=== PATIENT | female | born 1955 | race Caucasian/White ===

== ENCOUNTER 2017-02-26 06:01 | Day surgery (SDC) | payer BC ==
--- NOTE | ~2017-02-26 | EGD ---
EGD REPORT [facility] [address] [address] NAME: ESTELA VARGHESE : 57 STATUS : REG [facility]#: [id number] AGE: 61 ADM/REG DATE : 02/26/17 MR#: [id number] REPORT SERV DATE: 02/26/17 DICTATED BY: DATE: REPORT STATUS : Draft TRANSCRIBED BY: [employer] DATE: 02/26/17 [facility] Patient Name: Estela Varghese Date of : 1955 Attending MD: HENRIQUE COFFMAN MD Procedure Date No Time: 02/26/2017 Procedure: Colonoscopy Indications: Personal history of malignant neoplasm of the colon Referring MD: Liliana Salazar Medicines: as per anesthesia Complications: No immediate complications. Procedure: Pre-Anesthesia Assessment: - ASA Grade Assessment: III - A patient with severe systemic disease. After I obtained informed consent, the scope was passed under direct vision. Throughout the procedure, the patient's blood pressure, pulse, and oxygen saturations were monitored continuously. The PCF [id number] was introduced through the anus and advanced to the ileocolonic anastomosis. The colonoscopy was performed without difficulty. The patient tolerated the procedure. The quality of the bowel preparation was adequate to identify polyps. Findings: The perianal and digital rectal examinations were normal. There was evidence of a prior end-to-side ileo-colonic anastomosis in the transverse colon. This was patent. This was characterized by healthy appearing mucosa. Internal hemorrhoids were found during endoscopy and were mild. Impression: - Patent end-to-side ileo-colonic anastomosis. - Internal hemorrhoids. Recommendation: - Repeat colonoscopy in 5 years for surveillance. Procedure Code(s): --- Professional --- 91456, Colonoscopy, flexible, proximal to splenic flexure; diagnostic, with or without collection of specimen(s) by brushing or washing, with or without colon decompression (separate procedure) Diagnosis Code(s): --- Professional --- Z98.0, Intestinal bypass and anastomosis status K64.8, Other hemorrhoids EGD REPORT [facility] [address] [address] NAME: ESTELA VARGHESE : [birth year] STATUS : REG [facility] PAT#: [id number] AGE: 61 ADM/REG DATE : 02/26/17 MR#: [id number] REPORT SERV DATE: 02/26/17 DICTATED BY: DATE: REPORT STATUS : Draft TRANSCRIBED BY: [employer] DATE: 02/26/17 Z85.038, Personal history of other malignant neoplasm of large intestine CPT copyright 2013 [employer]. All rights reserved. The codes documented in this report are preliminary and upon social services manager review may be revised to meet current compliance requirements. HENRIQUE COFFMAN MD 02/26/2017 8:14 AM This report has been signed electronically. Number of Addenda: 0 Note Initiated On: 02/26/2017 7:49 AM Scope Withdrawal Time 0 hours 6 minutes [address] [place], [place] [address] [id number]
[~2017-02-26 06:01] MED LIST: ASA5GR PO; CRESTOR10 PO; FISH-EPA1000 MG PO; GLUCOPHXR PO; GLUCXL10 PO; JARDI25B PO; LOP50 PO; PRIN10 PO; SYN125 PO; TRADJENTA5 MG PO; TRANDAT100 PO
== END 2017-02-26 23:59 | disposition home or self-care (01) ==
LOC: DMU 06:01
PROVIDERS: Internal Medicine Gastroenterology
PROC: 0DJD8ZZ Inspection of Lower Intestinal Tract, Via Natural or Artificial Opening Endoscopic (ICD-10-PCS; principal; 2017-02-26 07:30)
DX: K64.8 Other hemorrhoids (principal); Z98.0 Intestinal bypass and anastomosis status; I10 Essential (primary) hypertension; E03.9 Hypothyroidism, unspecified; E11.9 Type 2 diabetes mellitus without complications; I49.9 Cardiac arrhythmia, unspecified; Z90.710 Acquired absence of both cervix and uterus; Z85.038 Personal history of other malignant neoplasm of large intestine; Z90.49 Acquired absence of other specified parts of digestive tract; Z79.899 Other long term (current) drug therapy; E78.00 Pure hypercholesterolemia, unspecified
CPT/HCPCS: 82962